=== PATIENT | female | born 1975 | race Caucasian/White ===

== ENCOUNTER 2020-06-08 14:32 | Emergency (ER) | payer OTHER | END 2020-06-08 15:32 | disposition home or self-care (01) | LOC: NAV ERS 14:32 | DX: S52.501A Unspecified fracture of the lower end of right radius, initial encounter for closed fracture (principal); V00.131A Fall from skateboard, initial encounter; Y93.51 Activity, roller skating (inline) and skateboarding | CPT/HCPCS: 29125 ==